=== PATIENT | male | born 1955 | race Caucasian/White ===

== ENCOUNTER 2021-03-17 09:51 | Emergency (ER) | payer OTHER ==
--- NOTE | 2021-03-17 09:52 | EDM.PDOC ---
ED HPI GENERAL MEDICAL PROBLEM - General Stated Complaint: COVID 19 TEST Time Seen by Provider: 03/17/21 09:52 Source of Information: Reports: Patient History Limitations: Reports: No Limitations - History of Present Illness INITIAL COMMENTS - FREE TEXT/NARRATIVE: 65-year-old male presents requesting a Covid test so he can go to [place]. He denies any symptoms. He had Covid August. He has not had the vaccine. - Related Data Allergies Allergy/AdvReac Type Severity Reaction Status Date / Time No Known Allergies Allergy Verified 03/17/21 10:47 Home Meds: Home Meds . [No Known Home Meds] 03/17/21 [History] ED ROS GENERAL - Review of Systems Review Of Systems: Comprehensive ROS is negative, except as noted in HPI. ED EXAM, GENERAL - Physical Exam Exam: See Below Exam Limited By: No Limitations General Appearance: Alert, WD/WN, No Apparent Distress Throat/Mouth: Normal Voice, No Airway Compromise Head: Atraumatic, Normocephalic Neck: Normal Inspection Respiratory/Chest: No Respiratory Distress, Lungs Clear, Normal Breath Sounds, No Accessory Muscle Use Cardiovascular: Normal Peripheral Pulses, Regular Rate, Rhythm Extremities: Normal Inspection Neurological: Alert, Normal Cognition Psychiatric: Normal Affect, Normal Mood Skin Exam: Warm, Dry, Intact, Normal Color Course - Vital Signs Last Recorded V/S: Last Vital Signs Temp 97.8 F 03/17/21 10:23 Pulse 68 03/17/21 10:23 Resp BP 150/96 H 03/17/21 10:23 Pulse Ox 95 03/17/21 10:23 - Orders/Labs/Meds Labs: Laboratory Tests 03/17/21 Range/Units 10:32 SARS-CoV-2 RNA (CARLOS) NEGATIVE (NEGATIVE) - Re-Assessments/Exams Free Text/Narrative Re-Assessment/Exam: 03/17/21 10:26 We will get COVID-19 testing. 03/17/21 11:43 Covid testing is negative. Will discharge. Departure - Departure Time of Disposition: 11:44 Disposition: Home, Self-Care 01 Condition: Good Clinical Impression: Encounter for medical screening examination - Discharge Information Instructions: COVID-19 Vaccine Information Additional Instructions: Your Covid PCR test was negative. In order to protect yourself and contacts from recurrent Covid infection you should get a Covid vaccination. The Covid vaccination is a safe, free vaccine that has an 85 to 95% efficacy rate of preventing Covid infection and a 100% efficacy rate of preventing severe Covid infection. Having had Covid once, you are not protected entirely from getting it again. If you need Covid testing for travel in the future, I would recommend going to a Covid testing center. Our emergency department is not a Covid testing center. You will be billed for an ER visit. You can find local testing centers at [email or web address]://www.health.[place].gov/diseases-conditions/[email or web address]/testing-care/where-get -[email or web address]-uata or by calling the [facility] department. The following information is given to patients seen in the emergency department who are being discharged to home. This information is to outline your options for follow-up care. We provide all patients seen in our emergency department with a follow-up referral. The need for follow-up, as well as the timing and circumstances, are variable depending upon the specifics of your emergency department visit. If you don't have a primary care physician on staff, we will provide you with a referral. We always advise you to contact your personal physician following an emergency department visit to inform them of the circumstance of the visit and for follow-up with them and/or the need for any referrals to a consulting specialist. The emergency department will also refer you to a specialist when appropriate. This referral assures that you have the opportunity for follow-up care with a specialist. All of these measure are taken in an effort to provide you with optimal care, which includes your follow-up. Under all circumstances we always encourage you to contact your private physician who remains a resource for coordinating your care. When calling for follow-up care, please make the office aware that this follow-up is from your recent emergency room visit. If for any reason you are refused follow-up, please contact the [facility] Emergency Department at and asked to speak to the emergency department charge nurse. Please follow up with your primary care physician. If you do not have a primary care physician, see below: [facility] [address] [place] [id number] [facility] [address] [place], [place] [id number] [facility] [address], [place] [address] Sepsis Event Note (ED) - Focused Exam Vital Signs: Vital Signs Temp Pulse BP Pulse Ox 03/17/21 10:23 97.8 F 68 150/96 H 95
== END 2021-03-17 11:55 | disposition home or self-care (01) ==
LOC: MW.ED 09:51
DX: Z00.00 Encounter for general adult medical examination without abnormal findings (principal); Z20.822 Contact with and (suspected) exposure to COVID-19
CPT/HCPCS: 99282; U0002